=== PATIENT | female | born 1965 | race Caucasian/White ===

== ENCOUNTER 2022-05-18 18:11 | Emergency (ER) | payer SELFPAY ==
[~2022-05-18] VITALS: Ht 162.6 cm; Wt 63.5 kg
[~2022-05-18 18:11] MED LIST: ENALAPRIL-HCTZ1 EACH PO; METHADONE HCL10 MG PO; VALIUM5 MG PO
[2022-05-18] MEDS ORDERED: Vancomycin IV 1 GM in SODIUM CHLORIDE 0.9% 250ML 250 ML IV ONE (19:00)
[2022-05-18] MEDS ORDERED: SODIUM CHLORIDE 0.9% 1000ML 1,000 ML IV SCH (19:00)
== END 2022-05-18 19:34 | disposition left against medical advice (07) ==
LOC: FSED 18:19
DX: L02.31 Cutaneous abscess of buttock (principal)